=== PATIENT | female | born 1940 | race Caucasian/White ===

== ENCOUNTER → 2018-03-03 | Day surgery (SDC) | payer OTHER, MEDICARE ==
[~2018-03-03] VITALS: Ht 162.6 cm; Wt 68.0 kg
[~2018-03-03] MED LIST: ALLOPURINOL100 M1 PO; ALLOPURINOL300 MG PO; ANASTROZOLE1 M1 PO; ANASTROZOLE1 MG PO; ASPIRIN EC81 M1 PO; ASPIRIN81 M1 PO; CALCIUM ACETAT667 M3 PO; CIPRO 500MG TA500 MG PO; COREG 25 MG TAB25 MG PO; COREG12.5 M1 PO; COREG25 M1 PO; DICYCLOMINE HCL10 M1 PO; FLAGYL 25O MG250 M1 PO; INCRUSE ELLI62.5 MCG INH; KETOROLAC TROMET5 ML OS; LASIX20 MG PO; LASIX40 M1 PO; LEVOTHYROXINE125 MCG PO; METAMUCIL660 GM PO; NEXIUM 40MG40 MG PO; NEXIUM40 M1 PO; NORVASC 5MG TAB5 MG PO; NORVASC10 M1 PO; NORVASC5 M1 PO; OMEPRAZOLE D/R20 MG PO; PERCOCET 5-3251 EACH PO; PROAIR HFA8.5 GM INH; PROBIOTIC FORM1 EACH PO; PROBIOTIC FORMU1 CA1 PO; SPIRIVA RESPIMAT4 GM INH; SYNTHROID0.025 MG PO; SYNTHROID125 MCG PO; TRAMADOL HCL50 M1 PO; TRIAMCINOL0.1 %/453 TOP; VIRTUSSIN AC L118 M1 PO; VOL-CARE RX TA1 EACH PO; ZITHROMAX250 M2 PO; ZOFRAN4 M2 PO
--- NOTE | 2018-03-03 10:17 | Operative Report ---
Operative/Inv Procedure Report Surgery Date: 03/03/18 Name of Procedure: Left endoscopic carpal tunnel release and left in situ cubital tunnel release Pre-Operative Diagnosis: Left carpal tunnel syndrome, left cubital ulnar tunnel syndrome Post-Operative Diagnosis: Same Estimated Blood Loss: scant Surgeon/Honing Machine Operator Production: Ronn Langston MD Anesthesia: laryngeal mask airway Drains: A Annmarie drain was placed in the cubital ulnar tunnel release incision. Complications: None Operative Indication: The patient had signs, symptoms, and electrodiagnostic evidence of left carpal tunnel syndrome and left cubital ulnar tunnel syndrome. Operative/Procedure Note Note: After informed consent was obtained the patient was taken to the operating room placed on the operating table in supine position with the left arm abducted on the arm table. After satisfactory sedation and laryngeal mask intubation a median nerve block was administered in the distal volar forearm using a half-and -half 10 mL mixture of 1% plain Xylocaine and 0.5% plain Marcaine. 1 mL was injected subcutaneously at the volar wrist. Over the cubital ulnar tunnel release site a total of 30 mL of 1% Xylocaine with epinephrine was injected subcutaneously. The patient had an AV shunt for dialysis in the upper arm which prohibited use of an upper arm tourniquet. The entire left arm was prepped and draped in the usual sterile fashion. A sterile tourniquet was then placed around the proximal forearm, distal to the elbow and distal to the shunt. A small transverse skin incision line was drawn at the volar wrist parallel and just proximal to the distal volar wrist flexion crease. The usual surface landmarks were identified. The arm was exsanguinated up to the tourniquet in the forearm and the tourniquet was inflated to 250 mmHg. Total tourniquet time was 15 minutes. A #15 scalpel blade was used to make the volar wrist incision. The underlying soft tissues were bluntly spread with a tenotomy scissors and 2 Ragnell retractors. The palmaris longus was retracted radially thereby revealing the underlying crossing fibers of the antebrachial fascia. A distally based U-shaped fascial flap was then created with a scissors and held in place with a small double hook. The synovial elevator was inserted into the carpal canal in line with the fourth metacarpal ray to release adhesions between the median nerve and the overlying transverse carpal ligament. This was followed by insertion of the serial carpal tunnel dilator hamate finders. Finally the Noe [employer] endoscopic device was inserted into the carpal canal in line with the fourth metacarpal ray. The distal border of the transverse carpal ligament was identified as was the distal fat pad. The blade was engaged and several passes were made through the overlying ligament. Care was taken to ensure that the distal border of the ligament was fully divided. The endoscope was removed and the proximal most portion of the ligament was divided under direct vision with a scissors. The fascial flap was then excised and discarded. Then working in retrograde fashion from distal to proximal the antebrachial fascia on the ulnar side of the forearm was divided with a scissors. 6 mL of 0.5% plain Marcaine were then injected topically on the median nerve and subcutaneously around the wound. The dermis was closed using interrupted inverted 5-0 Biosyn suture followed by skin glue and a Steri-Strip. 4 x 4's and a Kerlix were applied and the tourniquet was deflated and removed after 15 minutes. Attention was then turned to the cubital tunnel release. A 9 cm gentle curvilinear incision line was drawn over the cubital tunnel just posterior to the medial epicondyle. No tourniquet could be used because of the AV dialysis shunt. With the Xylocaine with epinephrine there was minimal bleeding. A #15 scalpel blade was used to make the skin incision. The underlying soft tissues were bluntly spread with tenotomy scissors. Crossing branches of the medial antebrachial cutaneous nerve were identified and preserved around a vascular vessel loop. Small bleeding points were electrocauterized with the Bovie and using the bipolar closer to the nerve. The cubital ulnar tunnel was identified. The nerve was visible beneath the fascia proximal to the medial epicondyle. The fascia was entered here and then divided in retrograde fashion from distal to proximal. An external neural lysis was also performed as far proximally as possible. Then working from proximal to distal the cubital tunnel was further released first by dividing the superficial fascia of the flexor carpi ulnaris, then bluntly spreading the muscle belly and then dividing the deep fascia. Care was taken to ensure that the entire ulnar nerve was released including an external neural lysis. Small vessels around the nerve root electrocauterized with the bipolar. One area required placement of small piece of [place]. No obvious hourglass deformity was noted within the ulnar nerve. With repeated flexion and extension of the elbow the ulnar nerve was noted to sublux but only intermittently. A single [id number] 4-0 Biosyn suture was therefore placed in the deep subcutaneous tissue over the medial epicondyle to prevent subluxation. This was performed successfully as subluxation was prevented with further elbow flexion. Further hemostasis was achieved. This was performed with electrocautery. The dermis was then closed using interrupted inverted 4-0 Biosyn suture. A half-inch Annmarie drain was placed in the wound and brought out through the distal wound and sutured in place with a 4-0 silk suture. Additional inverted 4-0 Monocryl sutures were placed followed by running subcuticular 4-0 Monocryl sutures. Prior to closure 10 mL of 0.5% plain Marcaine were instilled topically on the nerve. Bacitracin and Xeroform were applied along with 4 x 4's and ABDs and Kerlix. Care was taken to leave the dialysis shunt exposed. Marc wrap bandages were placed from the wrist up to the upper arm again leaving the shunt exposed. The arm was placed in a sling. There were no intraoperative complications. Sponge and needle counts were correct. The patient tolerated the procedure well and was awakened and asked pain the operating room and taken recovery room in stable condition. Findings: The transverse carpal ligament was released endoscopically. An in situ ulnar nerve release was performed. Additional Comments: Tourniquet time 15 minutes for the endoscopic carpal tunnel release. No tourniquet was used for the cubital ulnar tunnel release due to the presence of an arteriovenous dialysis shunt in the upper arm.
== END ==
LOC: STS 02:03
DX: G56.02 Carpal tunnel syndrome, left upper limb (principal); G56.22 Lesion of ulnar nerve, left upper limb; I12.0 Hypertensive chronic kidney disease with stage 5 chronic kidney disease or end stage renal disease; N18.6 End stage renal disease; Z99.2 Dependence on renal dialysis; Z87.891 Personal history of nicotine dependence; K21.9 Gastro-esophageal reflux disease without esophagitis; E03.8 Other specified hypothyroidism; M10.9 Gout, unspecified
CPT/HCPCS: J0131; J2001; J3490

== ENCOUNTER → 2018-03-31 | Day surgery (SDC) | payer OTHER, MEDICARE ==
[~2018-03-31] VITALS: Ht 162.6 cm; Wt 68.0 kg
--- NOTE | 2018-03-31 10:01 | Operative Report ---
Operative/Inv Procedure Report Surgery Date: 03/31/18 Name of Procedure: Right endoscopic carpal tunnel release and right in situ cubital ulnar tunnel release Pre-Operative Diagnosis: Right carpal tunnel syndrome and right cubital ulnar tunnel syndrome Post-Operative Diagnosis: Same Estimated Blood Loss: scant Surgeon/School Age Lead Teacher: Ronn Langston MD Anesthesia: laryngeal mask airway Drains: A quarter-inch Annmarie drain was placed in the cubital ulnar tunnel wound Specimens: None Tourniquet: Tourniquet time 63 minutes Complications: None Operative Indication: The patient had signs and symptoms electrodiagnostic evidence of both right carpal tunnel syndrome and right cubital tunnel syndrome. She understood the planned procedure as well as the risks, benefits, complications, and alternatives and she signed the informed consent form. Operative/Procedure Note Note: After informed consent was obtained the patient was taken to the operating room placed on the operating table in the supine position with the right arm abducted on the arm table. After satisfactory induction and intubation a well-padded tourniquet was placed high around the right upper arm. 10 mL of a [id number] mixture of 0.25% plain Marcaine and 2% plain Xylocaine were injected over the median nerve at the distal volar forearm and 1 mL was injected subcutaneously at the volar wrist. An additional 10 mL of this mixture were injected over the cubital ulnar release site. The arm was prepped and draped in the usual sterile fashion. The usual surface landmarks were identified at the wrist and the hand and a small transverse skin incision line was drawn at the volar wrist. A gentle curvilinear 6 cm incision line was drawn over the cubital tunnel posterior to the medial epicondyle. The arm was exsanguinated with an Esmarch bandage and the tourniquet was inflated to 250 mmHg. Total tourniquet time was 63 minutes. Attention was turned first to the right endoscopic carpal tunnel release. A #15 scalpel blade was used to make the volar wrist incision. The underlying soft tissues were bluntly spread with a tenotomy scissors and 2 Ragnell retractors. The palmaris longus tendon was retracted radially thereby revealing the underlying antebrachial fascia. With a tenotomy scissors a distally based U-shaped fascial flap was created and held in place with a small double hook. The synovial elevator was inserted to clear adhesions from the undersurface of the transverse carpal ligament. This was followed by insertion of the serial carpal tunnel dilator hamate finders. Finally the [place] Noe endoscopic device was inserted into the carpal canal in line with the fourth metacarpal ray. The distal border of the transverse carpal ligament was identified as was the distal fat pad. The blade was engaged and several passes were made through the distal portion of the ligament. Care was taken to ensure that the distal border of the transverse carpal ligament was fully divided. The endoscope was removed and the proximal portion of the ligament was divided under direct vision with a scissors. The fascial flap was excised. Then working in retrograde fashion from distal to proximal the antebrachial fascia on the ulnar side of the wrist was divided with a scissors. An additional 5 mL of 0.25% plain Marcaine were injected around the wound and instilled topically on the median nerve. The dermis was closed using interrupted inverted 5-0 Monocryl suture. Dermabond and a Steri-Strip were applied. Attention was then turned to right cubital ulnar tunnel release. The incision was made with a #15 scalpel blade. The soft tissues were bluntly spread with a hemostat and the electrocautery. No significant antebrachial cutaneous nerve branch was identified. A [place] or was placed. The fascia over the cubital tunnel was identified. Proximally the ulnar nerve was visible beneath the fascia and the fascia was incised with the tenotomy scissors thereby revealing the underlying ulnar nerve. Working distal to proximal the fascia in the upper arm was released retrograde S far distally as possible. Then working proximal to distal remainder of the fascia of the cubital tunnel was released. The superficial fascia of the flexor carpi ulnaris was divided. The muscle belly was bluntly spread and the deep fascia was also incised as distally as possible. Hemorrhagic staining was noted on the ulnar nerve posterior to the medial epicondyle. A minimal external neural lysis was performed. No transposition was performed. There was slight flattening of the nerve just posterior to the medial epicondyle. With elbow flexion there was mild subluxation so local subcutaneous tissue was closed over the nerve loosely using a single figure-of- eight 3-0 Monocryl suture. This prevented the mild subluxation. 10 mL of 0.25% plain Marcaine were then injected additionally around the wound and onto the ulnar nerve itself. Attention was turned to closure. The dermis was closed using interrupted inverted 3-0 Monocryl suture. A quarter inch [place] drain was placed in the wound and brought out distally and sutured in place with a 4-0 silk suture. The skin was further reapproximated using a running subcuticular 4 -0 Monocryl suture. Bacitracin and Xeroform were applied along with 4 x 4's and fluffs and ABDs. 4 x 4's were placed at the wrist. A Curlex was placed from the palm up above the elbow. The tourniquet was deflated after 63 minutes. 2 Marc wrap bandages were then applied and the arm was placed in a sling. There were no entrapped complications. Sponge and needle counts were correct. The patient tolerated the procedure well and was awakened and extubated in the operating room and taken to recovery room in stable condition.
== END ==
LOC: STS 02:59
DX: G56.21 Lesion of ulnar nerve, right upper limb (principal); G56.01 Carpal tunnel syndrome, right upper limb; I12.0 Hypertensive chronic kidney disease with stage 5 chronic kidney disease or end stage renal disease; N18.6 End stage renal disease; Z99.2 Dependence on renal dialysis; E03.8 Other specified hypothyroidism; M10.9 Gout, unspecified; E78.2 Mixed hyperlipidemia
CPT/HCPCS: 36415; J2001